=== PATIENT | female | born 1985 | race Caucasian/White ===

== ENCOUNTER 2020-09-17 10:54 | Outpatient (REF) | payer OTHER, SELFPAY | END 2020-09-17 10:55 | disposition home or self-care (01) | LOC: HO.LNP 10:54 | PROVIDERS: Visit Provider Internal Medicine | DX: Z20.828 Contact with and (suspected) exposure to other viral communicable diseases (principal) | CPT/HCPCS: 87635 ==

== ENCOUNTER 2020-10-18 14:26 | Outpatient (REF) | payer OTHER, SELFPAY | END 2020-10-18 14:27 | disposition home or self-care (01) | LOC: HO.SCI 14:26 | PROVIDERS: Visit Provider Internal Medicine | DX: Z20.828 Contact with and (suspected) exposure to other viral communicable diseases (principal) | CPT/HCPCS: C9803; U0003 ==